=== PATIENT | female | born 1995 | race Caucasian/White ===

== ENCOUNTER 2021-04-12 07:20 | Emergency (ER) | payer OTHER ==
[2021-04-12] MEDS ORDERED: DEXAMETHASONE 10 MG/ML VIAL PO STA (07:43)
[2021-04-12] MEDS ORDERED: CHERRY SYRUP 10 ML UDC PO ONE (07:43)
--- NOTE | 2021-04-12 07:45 | ED Physician Documentation ---
PD HPI HEENT - Stated complaint Stated Complaint: SORE THROAT/COUGH/ANXIETY - Chief complaint Chief Complaint: Heent - History obtained from History obtained from: Patient - History of Present Illness Timing - onset: How many days ago (4) Timing - duration: Days (4) Timing - details: Gradual onset, Still present Location: Left ear, Nose, Throat Improves: Medication Worsens: Swalllowing Associated symptoms: Congestion, Rhinorrhea, Headache, Cough Similar symptoms before: Diagnosis (OM) Recently seen: Not recently seen - Additional information Additional information: Previously well 26-year-old female with a history of otitis media and PE tubes has developed a cough and congestion over the last 4 days. She is immunized with [employer] 2 months ago in [place]. She works in the hospital in nursing. Review of Systems Constitutional: reports: Myalgias, Fatigue, Sweats. denies: Fever Eyes: denies: Decreased vision Ears: reports: Ear pain Nose: reports: Rhinorrhea / runny nose, Congestion Throat: reports: Sore throat Cardiac: denies: Chest pain / pressure, Palpitations Respiratory: reports: Cough. denies: Dyspnea GI: denies: Vomiting PD PAST MEDICAL HISTORY - Present Medications Home Medications: Ambulatory Orders Medication Instructions Recorded Confirmed Amox/Clav 875/125 [Augmentin] 1 each PO Q12H #20 tablet 04/12/21 LORazepam [Ativan] 0.5 mg PO DAILY PRN 04/12/21 04/12/21 Sertraline [Zoloft] 100 mg PO DAILY 04/12/21 04/12/21 cloNIDine [Catapres] 0.1 mg PO TID 04/12/21 04/12/21 - Allergies Allergies/Adverse Reactions: Allergies Allergy/AdvReac Type Severity Reaction Status Date / Time No Known Drug Allergies Allergy Verified 04/12/21 07:32 PD ED PE NORMAL - Vitals Vital signs reviewed: Yes (tachy and hypertensive ) - General General: Alert and oriented X 3, Well developed/nourished, Other (anxious and in tears) - HEENT HEENT: Atraumatic, PERRL, EOMI, Other (marked inflamation to the left TM with tympanosclerosis present and distortion of the landmarks. ) - Neck Neck: Supple, no meningeal sign, No bony TTP - Cardiac Cardiac: RRR, No murmur - Respiratory Respiratory: No respiratory distress, Clear bilaterally - Derm Derm: Normal color, Warm and dry, No rash - Extremities Extremities: No deformity, No edema - Neuro Neuro: Alert and oriented X 3, c d still operator 2-12 intact, No motor deficit, No sensory deficit, Normal speech Eye Opening: Spontaneous Motor: Obeys Commands Verbal: Oriented GCS Score: 15 - Psych Psych: Normal mood, Normal affect Results - Vitals Vitals: Vital Signs - 24 hr 04/12/21 07:25 Temperature 36.9 C Heart Rate 106 H Respiratory 18 Rate Blood Pressure 136/71 H O2 Saturation 99 Oxygen O2 Source Room air - Labs Labs: Laboratory Tests 04/12/21 08:20 SARS-CoV-2 (PCR) NOT DETECTED PD MEDICAL DECISION MAKING - ED course Complexity details: reviewed old records, reviewed results, re-evaluated patient, considered differential, d/w patient ED course: 26 y/o female with cough and congestion is immunized, has history of recurrent OM on the left and has acute OM on the left today. I suspect this is the source of the patient's symptoms Departure - Departure Disposition: 01 Home, Self Care Clinical Impression: Otitis media Qualifiers: Otitis media type: suppurative Chronicity: acute Laterality: left Recurrence: recurrent Spontaneous tympanic membrane rupture: without spontaneous rupture Qualified Code(s): H66.005 - Acute suppurative otitis media without spontaneous rupture of ear drum, recurrent, left ear Instructions: ED Otitis Media Acute Adult Follow-Up: [facility] [Provider Group] Prescriptions: Amox/Clav 875/125 [Augmentin] 1 each PO Q12H #20 tablet
[2021-04-12] MEDS ORDERED: LORazepam 1 MG TABLET PO STA (09:37)
[2021-04-12 10:00] VITALS: BP 132/82
== END 2021-04-12 09:59 | disposition home or self-care (01) ==
LOC: ED 07:20
DX: H66.005 Acute suppurative otitis media without spontaneous rupture of ear drum, recurrent, left ear (principal); Z20.822 Contact with and (suspected) exposure to COVID-19
CPT/HCPCS: 87635; 99283; A9270; J8499

== ENCOUNTER 2021-06-18 21:16 | Emergency (ER) | payer OTHER ==
[2021-06-18 21:29] VITALS: BP 133/76
== END 2021-06-18 21:50 | disposition left against medical advice (07) ==
LOC: ED 21:16
DX: Z53.21 Procedure and treatment not carried out due to patient leaving prior to being seen by health care provider (principal)